=== PATIENT | male | born 1985 | race Two or more races ===

== ENCOUNTER 2019-01-01 10:50 | Emergency (ER) | payer OTHER ==
[~2019-01-01] VITALS: Ht 185.4 cm; Wt 125.2 kg
[2019-01-01 11:03] VITALS: BP 152/101
[2019-01-01] MEDS ORDERED: TDAP [DIPH/PERTUSSIS/TET] 0.5 ML VIAL IM ONE ×2 (11:29→11:30)
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
--- NOTE | 2019-01-01 11:46 | NUR ---
PATIENT CLEARED BY ER HOSPITALIST FOR DISCHARGED. PATIENT OK TO BOOK. DISCHARGE TEACHING AND EDUCATION PROVIDED TO PATIENT AND VERBALIZED UNDERSTANDING. PATIENT LEFT UNIT WITH 2 [employer] OFFICERS. PATIENT AMBULATORY. DENIES ANY PAIN OR DISCOMFORT. NO ACUTE DISTRESS. AWARE
== END 2019-01-01 11:50 ==
LOC: ER 10:52
DX: S60.221A Contusion of right hand, initial encounter (principal); Y04.0XXA Assault by unarmed brawl or fight, initial encounter; Y93.89 Activity, other specified; Y92.89 Other specified places as the place of occurrence of the external cause; Y99.8 Other external cause status
CPT/HCPCS: 73130-TC; 90715